=== PATIENT | female | born 1950 | race Caucasian/White ===

== ENCOUNTER 2024-12-14 20:04 | Inpatient (IN) | payer MEDICARE ==
[~2024-12-14] VITALS: Ht 160 cm; Wt 66.0 kg
--- NOTE | 2024-12-14 20:18 | Physician Documentation ---
History of Present Illness ~ Stated Complaint: MULTIPLE MEDICAL COMPLAINTS Time Seen by MD: 20:13 OK to notify your PCP?: Yes HPI Patient presents to the emergency room as a transfer from [facility] for concerns regarding failure to thrive, alcoholism, frequent falls, high-risk alcohol withdrawal. She is brought into their facility after a fall today of where she sustained a dislocated left shoulder. Shoulder was reduced. She was started on Eliquis a proximally a month ago but this was stopped secondary to frequent falls. EMS reports they had to go out to her living facility multiple times for lift assist. She lives alone. She is supposed to be on Eliquis sec to DVT. Medication Reconciliation Allergies: Coded Allergies: No Known Allergies (Unverified , 12/14/24) Review of Systems ROS All review of systems negative except as per HPI Physical Exam Physical Exam General: Patient is awake, alert, oriented x4 in no acute distress Head: Normocephalic with abrasion of 3 cm noted above right eyebrow Eyes: Conjunctival normal. EOMI. PERRL. ENT: Mucous membranes moist. Neck: Supple, trachea is midline. Chest: Clear to auscultation bilaterally without rales, rhonchi, or wheezes. There is no accessory muscle use or retractions. Cardiac: RRR without murmurs, gallops, or rubs. Abd: Soft, nondistended, nontender, with normoactive bowel sounds. No guarding, rebound, or rigidity. Extremities: Bilateral upper extremities neurovascularly intact. Right arm in his sling Progress Results/Orders Results/Orders Orders - CHET KESSLER MD Urinalysis, Cult If Indicated (12/14/24 20:21) Page Hospitalist (12/14/24 20:52) Fill Out Med Reconciliation (12/14/24 20:52) Completed Orders - CHET KESSLER MD Cbc/Diff (12/14/24 20:21) CMP (12/14/24 20:21) Normal Saline 1000ml (0.9% Sodium Chlori (12/14/24 20:25) Medications Received in ER Medications (Trade) Dose Ordered Sig/Sourav Route PRN Reason Start Time Stop Time Status Last Admin Dose Admin Sodium Chloride 1,000 ml @ 1,000 mls/hr ONCE ONCE IV 12/14/24 20:25 12/14/24 21:24 DC 12/14/24 21:05 1,000 MLS/HR Vital Signs 12/14/24 20:12 Temp 98.5 Pulse 98 Resp 15 B/P (MAP) 109/68 Pulse Ox 95 O2 Flow Rate 2.0 Laboratory Tests Test 12/14/24 20:40 White Blood Count 6.2 Red Blood Count 3.63 L Hemoglobin 10.7 L Hematocrit 32.2 L Mean Corpuscular Volume 88.8 Mean Corpuscular Hemoglobin 29.5 Mean Corpuscular Hemoglobin Concent 33.2 Red Cell Distribution Width 24.7 H Platelet Count 132 L Mean Platelet Volume 8.1 Neutrophils (%) (Auto) 55.2 Lymphocytes (%) (Auto) 36.3 Monocytes (%) (Auto) 7.2 Eosinophils (%) (Auto) 0.7 Basophils (%) (Auto) 0.6 Neutrophils # (Auto) 3.4 Lymphocytes # (Auto) 2.3 Monocytes # (Auto) 0.4 Eosinophils # (Auto) 0.0 Basophils # (Auto) 0.0 CBC Comment Platelet Estimate Decreased Red Blood Cell Morphology Perf Hypochromasia 1+ Basophilic Stippling Anisocytosis 2+ Microcytosis Few Macrocytosis Few Sodium Level 136 Potassium Level 3.1 L Chloride Level 106 Carbon Dioxide Level 20.3 L Anion Gap 10 Blood Urea Nitrogen 7 Creatinine 0.75 Estimated GFR/1.73 m2 76 BUN/Creatinine Ratio 9.3 L Glucose Level 116 H Calcium Level 7.4 L Total Bilirubin 0.6 Aspartate Amino Transf (AST/SGOT) 87 H Alanine Aminotransferase (ALT/SGPT) 57 Alkaline Phosphatase 95 Total Protein 5.4 L Albumin 2.0 L Globulin 3.4 Albumin/Globulin Ratio 0.6 L Chemistry Comments Medical Decision Making Findings Patient presents to the emergency room from [facility]. Patient was an unsafe discharge therefore she was transferred patient to our facility. Currently has no complaints. No symptoms of withdrawal Departure Admitted to Inpatient Unit: yes, to hospitalist Impression: Primary Impression: Multiple falls Additional Impressions: Alcohol abuse Dislocation of right shoulder joint Condition: Guarded Referrals: NO PRIMARY CARE PROVIDER (PCP) Signature Scribe Signature: No scribe Attestation: The note accurately reflects work and decisions made by me.Chet Kessler MD 12/14/24 21:40 CHET KESSLER MD Dec 14, 2024 20:18
[2024-12-14 20:52] LABS: MEAN PLATELET VOLUME 8.1 FL (7.4-10.4); RED CELL DISTRIBUTION WIDTH 24.7 % (11.5-14.5)
[2024-12-14 21:03] LABS: PLATELET ESTIMATE DECREASED
[2024-12-14] MEDS: normal saline 1000ml 1,000 ML IV ONE (21:05)
[2024-12-14 21:07] LABS: CREATININE 0.75 MG/DL (0.40-0.90); TOTAL CARBON DIOXIDE 20.3 MMOL/L (24-32); eCRCL 56 ML/MIN; eGFR 76 ML/MIN
[2024-12-14] MEDS ORDERED: potassium Cl 40MEQ/1/2NS 520ml 520 ML IV PRN (21:55)
[2024-12-14] MEDS ORDERED: mag hydrox/Alum hydrox/simeth 30ml oral suspension PO PRN (21:55)
[2024-12-14] MEDS ORDERED: HYDROcodone/acetaminophen 5mg/325mg tablet PO PRN (21:55)
[2024-12-14] MEDS ORDERED: haloperidol lactate 5mg/ml inj IM PRN (21:55)
[2024-12-14] MEDS ORDERED: ondansetron/PF 4mg/2ml inj IV PRN (21:55)
[2024-12-14] MEDS ORDERED: magnesium sulf-water 4G/100mL 100 ML IV PRN (21:55)
[2024-12-14] MEDS ORDERED: magnesium hydroxide 30ml (MOM) UD suspension PO PRN (21:55)
[2024-12-14] MEDS ORDERED: dextrose 50%-water 50ml dispensing syringe IV PRN (21:55)
[2024-12-14] MEDS ORDERED: potassium Cl 20 mEq SR tablet PO PRN (21:55)
[2024-12-14] MEDS ORDERED: magnesium sulf-water 2g/50mL 50 ML IV PRN (21:55)
[2024-12-14 22:33] LABS: INR 1.1 INR
[2024-12-14] MEDS: cefTAZidime 1 GM/NS 100ML IVPB 100 ML IV ONE (22:34)
--- NOTE | 2024-12-14 22:37 | RADIOLOGY REPORT ---
CLINICAL INDICATION: dislocation RIGHT TECHNIQUE: 3 views DI SHOULDER, COMPLETE (MIN 2 VWS) Comparison: None FINDINGS: No acute fracture or dislocation. Surgical anchor in the greater tuberosity. No significant degenera tive change. Unremarkable soft tissues and imaged chest contents. IMPRESSION: 1. No acute finding of the right shoulder.
[2024-12-14] MEDS: potassium Cl 20 mEq SR tablet PO PRN (22:48)
[2024-12-14] MEDS: folic acid 1mg/0.2ml inj IV SCH (22:57)
[2024-12-14] MEDS ORDERED: ASPI-1265 PO (23:00)
[2024-12-14] MEDS ORDERED: OMEP40CA21 PO (23:00)
[2024-12-14] MEDS ORDERED: ROPI2TAB29 PO (23:00)
[2024-12-14] MEDS ORDERED: TRAZ-251 PO (23:00)
[2024-12-14] MEDS: folic acid 1mg/0.2ml inj IV ONE (23:03)
--- NOTE | 2024-12-14 23:20 | HISTORY AND PHYSICAL-Residence ---
History & Physical Providers to CC Resident Creating Document: JOSEPHINE NAJERA, JANELLE ~ History of Present Illness Reason for Admit\Complaint: Mechanical fall History of Present Illness The patient is a 74 year old female with past medical history of alcohol use disorder, arthritis, depression, hypertension, GERD, HLD, recent history of right leg DVT (08/2024), was transfered from [facility]. Patient is a poor historian. History is limited. Patient is a chronic alcoholic and had her last drink this morning. She sustained a ground level mechanical fall at her house after she tripped through the door. She landed on her right shoulder which dislocated. She denied hit to head, loss of consciousness. She was brought in by the ambulance to [facility] where she underwent reduction of shoulder with pain medication. Patient denies fevers, difficulty breathing, cough, chest pain, palpitations, syncope, abdominal pain, nausea, vomiting, diarrhea, constipation, burning micturition. Patient has a recent history of right lower extremity DVT in Aug, 2024 for which she was started on Eliquis. The patient did not finish her course of Eliquis as she has recurrent falls. Allergies: Coded Allergies: No Known Allergies (Unverified , 12/14/24) Home Medications Home Medications Active Reported Prilosec (Omeprazole) 40 Mg Capsule 1 Cap PO DAILY 30 Days Aspirin 81 Mg Tab.chew 1 Tab PO DAILY 30 Days Ropinirole Hcl 2 Mg Tab.er.24h 1 Tab PO DAILY 30 Days Trazodone HCl 50 Mg Tablet 1 Tab PO HS 30 Days Past Medical History Past Medical History Alcohol use disorder Nicotine use disorder Arthritis Chronic back pain Depression/anxiety Essential hypertension GERD Hyperlipidemia Restless legs syndrome Recent history of right leg DVT in 09/12 Past Surgical History Surgical History Comment Elbow surgery Foot surgery Laparoscopic cholecystectomy Shoulder surgery Total abdominal hysterectomy with bilateral salpingo-oophorectomy Past Social History Social History Comment Patient lives by herself in her house. Ambulates independently without assistance. PCP - AMARA Christensen Does not follow up with other specialists Substance use history: Smokes about one pack of cigarettes per day and has been smoking since her 20s. Drinks about one pt of black Velvet whiskey per day. Last drink was at around 11:00 a.m. this morning. Denies other illicit drug abuse. ROS ROS Constitutional: No fever, dizziness, weakness. no change in appetite/weight HEENT: No blurring of the vision, No sore throat, epistaxis, tinnitus Cardiovascular: No chest pain/discomfort, palpitations, syncope. No pedal edema Respiratory: No sob, cough,, hemoptysis Gastrointestinal: No abdominal pain, nausea, vomiting. No diarrhea, constipation, melena. Genitourinary: No frquency, urgency, incontinence, nocturia. No dysuria, hematuria Musculoskeletal: Reports right shoulder pain Endocrine: No fatigue, polydipsia, polyuria. No heat or cold intolerance Neurologic: No headache, vertigo. No weakness, numbness or tingling of extremities Psychiatric: No hallucinations/delusions, no anhedonia, no suicidal ideation Hematologic: No bleeding or bruises Exam Vitals: Vital Signs Date Time Temp Pulse Resp B/P (MAP) Pulse Ox O2 Delivery O2 Flow Rate FiO2 12/14/24 22:42 23 12/14/24 22:42 98.5 89 97 12/14/24 20:12 2.0 General: Elderly female, alert and oriented, not in acute distress Head: Normocephalic with an atraumatic Eyes: Pupils- 3mm, reacting to light, conjunctiva- anicteric Nose and throat: No polyps, septum- normal, no mucosal ulcers Neck: Supple, no lymphadenopathy, no carotid bruit Respiratory: No use of accessory muscles of respiration, Bilateral normal vesicular breath sounds heard. No wheeze, rhochi or creps Cardiac: S1-S2 heard, rhythm regular, no gallop/murmur Abdomen: non distended, no tenderness, no organomegaly, bowel sounds - heard Extremities: no clubbing, no pedal edema, no deformities, peripheral pulses - 2+ Right shoulder: Patient refused examination Skin: warm and dry, no rash, no purpura Neuro: No focal deficit, gross cranial nerve exam - normal Diagnostic Data Last Recorded Lab Results: 12/14/24203912/14/242039 Diagnostic Data: Laboratory Tests Test 12/14/24 20:40 Prothrombin Time 11.0 SECONDS (9.0-12.0) INR International Normalized Ratio 1.1 INR Coagulation Comments Counseling Services Smoking & Tobacco Cessation: > 10 Minutes Advance Care Planning Advanced Care plannin - 30 Minutes (Full code) Additional Plan A 74-year-old female with past medical history of hypertension, recent DVT, arthritis, alcohol use disorder, nicotine use disorder, was transferred from [facility] after she sustained ground level mechanical fall dislocating her right shoulder. She is being admitted into the hospital for further evaluation and management. Plan: Ground level mechanical fall Anterior right shoulder dislocation S/p closed reduction with traction and external rotation X-ray of right shoulder at the other hospital showed anterior right shoulder dislocation with no obvious fracture. Patient underwent closed reduction with traction and external rotation of right shoulder. Repeat x-ray shows right shoulder in place with no fractures or dislocation. Pain management with morphine and [place]. Urinary tract infection covering Gram-negative organisms Lactic acidosis Urinalysis positive for leukocyte esterase, 5-10 WBCs and many bacteria. Elevated lactic acid 6.3, trended down to 3.8. No leukocytosis. Follow up with repeat lactic acid and procalcitonin. Started the patient on IV ceftriaxone 1 g daily. Patient received 1 L of NS bolus in the ER. Continue IV fluids NS at 100 mL/hour. Follow up with urine cultures. Hypokalemia Potassium at the other hospital was 2.8. Currently 3.1. Correct as per protocol. Recent history of right leg DVT Venous Doppler of bilateral lower extremities at the other hospital showed no sonographic evidence of DVT. Previous thrombus involving the right lower extremity has resolved. Continue Eliquis 5 mg twice daily. Alcohol use disorder Initiated the patient on severe alcohol withdrawal protocol. Continue IV thiamine 200 mg thrice daily and IV folic acid 1 mg daily. Ativan and Haldol for agitation and restlessness. Nicotine use disorder Substance use navigator and manager social work consulted. Restless leg syndrome Continue home ropinirole 0.25 mg HS. Code Status: Full code DVT Prophylaxis: Eliquis Analgesia/Sedation: Morphine Lines/Tubes: PIV Nutrition: Heart healthy diet PT: Ordered Prognosis: Guarded Disposition: We will admit the patient into [facility] Physical therapy and possible rehab placement. Continue alcohol withdrawal protocol. Josephine Najera MD Internal Medicine Resident PGY-2 I discussed the assessment and plan with the resident and agree with it with no changes. Randi Crespo MD Critical Care Date of Service: Dec 14, 2024 Billing Provider: JOHNNY HERRERA MD,JOSEPHINE RUSS, RES Dec 14, 2024 23:20 RANDI CRESPO MD Dec 15, 2024 20:30
[2024-12-14 23:40] VITALS: BP 153/90; PULSE 83; RESP 16; TEMP 98; O2SAT 94
[2024-12-15] MEDS: HYDROcodone/acetaminophen 10/325mg tab PO PRN (00:05)
[2024-12-15] MEDS: CefTRIAXone/D5W-Rocephin 1gm 50 ML IV ONE (00:52)
[2024-12-15] MEDS: normal saline 1000ml 1,000 ML IV SCH (00:52)
[2024-12-15 05:00] LABS: MEAN PLATELET VOLUME 8.3 FL (7.4-10.4); RED CELL DISTRIBUTION WIDTH 24.7 % (11.5-14.5)
[2024-12-15 05:30] LABS: CHOL/HDL RATIO 6.5 (0.00-4.99); CREATININE 0.67 MG/DL (0.40-0.90); LDL CHOLESTEROL 102 MG/DL (50-100); TOTAL CARBON DIOXIDE 21.5 MMOL/L (24-32); eCRCL 63 ML/MIN; eGFR 87 ML/MIN
[2024-12-15 06:52] VITALS: BP 121/76; PULSE 78; RESP 13; TEMP 98.6; O2SAT 94
[2024-12-15] MEDS: magnesium Cl slow-release 64mg tablet PO PRN (07:16)
[2024-12-15] MEDS: thiamine 100mg/ml 2ml inj. IV SCH (07:16)
[2024-12-15] MEDS: docusate sod 100mg capsule PO SCH (07:17)
[2024-12-15] MEDS: lactobacillus rhamnosus 10,000 MMU CELLS/CAPSULE PO SCH (07:17)
[2024-12-15] MEDS: K and/or MAG REPLACEMENT MC SCH (07:38)
[2024-12-15] MEDS ORDERED: heparin, porcine 5000 units/ml vial SQ SCH (08:00)
[2024-12-15 08:30] VITALS: RESP 13; O2SAT 94
[2024-12-15 10:00] VITALS: BP 123/69; PULSE 80; RESP 18; TEMP 96.6; O2SAT 96
--- NOTE | 2024-12-15 10:47 | PROGRESS NOTE- Residence ---
Progress Note - Resident Providers to CC Resident Creating Document: LIONEL TITUS RES ~ Antibiotic Timeout Antibiotic Ordered?: Yes Subjective Patient was seen and examined at the bedside today. Patient reports that she has chronic daily for months, has a about seven to episodes a day of loose watery stools. Denies any recent antibiotic use. Objective Vital Signs Date Time Temp Pulse Resp B/P (MAP) Pulse Ox O2 Delivery O2 Flow Rate FiO2 12/15/24 06:52 98.6 78 13 121/76 (91) 94 12/14/24 23:40 Room Air 12/14/24 20:12 2.0 Result Diagram: 12/15/24 0419 12/15/24 0419 Elderly female, alert and oriented, not in acute distress Head: Normocephalic with an atraumatic Eyes: Pupils- 3mm, reacting to light, conjunctiva- anicteric Nose and throat: No polyps, septum- normal, no mucosal ulcers Neck: Supple, no lymphadenopathy, no carotid bruit Respiratory: No use of accessory muscles of respiration, Bilateral normal vesicular breath sounds heard. No wheeze, rhochi or creps Cardiac: S1-S2 heard, rhythm regular, no gallop/murmur Abdomen: non distended, no tenderness, no organomegaly, bowel sounds - heard Extremities: no clubbing, no pedal edema, no deformities, peripheral pulses - 2+ Right shoulder: Patient refused examination Skin: warm and dry, no rash, no purpura Neuro: No focal deficit, gross cranial nerve exam - normal Coagulation Studies Laboratory Tests Test 12/14/24 20:40 Prothrombin Time 11.0 SECONDS (9.0-12.0) INR International Normalized Ratio 1.1 INR Coagulation Comments Plan Plan A 74-year-old female with past medical history of hypertension, recent DVT, arthritis, alcohol use disorder, nicotine use disorder, was transferred from [facility] after she sustained ground level mechanical fall dislocating her right shoulder. She is being admitted into the hospital for further evaluation and management. Plan: Ground level mechanical fall Anterior right shoulder dislocation S/p closed reduction with traction and external rotation X-ray of right shoulder at the other hospital showed anterior right shoulder dislocation with no obvious fracture. Patient underwent closed reduction with traction and external rotation of right shoulder. Repeat x-ray shows right shoulder in place with no fractures or dislocation. Pain management with morphine and [place]. Urinary tract infection covering Gram-negative organisms Lactic acidosis Urinalysis positive for leukocyte esterase, 5-10 WBCs and many bacteria. Elevated lactic acid 6.3, trended down. No leukocytosis normal procalcitonin Started the patient on IV ceftriaxone 1 g daily. Patient received 1 L of NS bolus in the ER. Continue IV fluids NS at 100 mL/hour. Follow up with urine cultures. Hypokalemia Hypomagnesemia Potassium at the other hospital was 2.8. Currently 3.1. Magnesium 1.2 Correct as per protocol. Recent history of right leg DVT Venous Doppler of bilateral lower extremities at the other hospital showed no sonographic evidence of DVT. Previous thrombus involving the right lower extremity has resolved. Continue Eliquis 5 mg twice daily. Alcohol use disorder Initiated the patient on severe alcohol withdrawal protocol. Continue IV thiamine 200 mg thrice daily and IV folic acid 1 mg daily. Ativan and Haldol for agitation and restlessness. Nicotine use disorder Substance use navigator and social worker assistant consulted. Restless leg syndrome Continue home ropinirole 0.25 mg HS. Chronic diarrhea Patient has a history of chronic diarrhea, has 7 to 8 episodes of loose bowel movements every day C diff ordered. Functional decline PT ordered Code Status: Full code DVT Prophylaxis: Eliquis Analgesia/Sedation: Morphine Lines/Tubes: PIV Nutrition: Heart healthy diet PT: Ordered Prognosis: Guarded Lionel Titus M.D PGY2 Date of Service: Dec 15, 2024 Billing Provider: JOHNNY HERRERA MD, PRAVAHIKA, RES Dec 15, 2024 10:47
[2024-12-15 13:21] LABS: C DIFF ANTIGEN NEGATIVE (NEGATIVE); C DIFF SPECIMEN=DIARRHEA? ACCEPTABLE; C DIFFICILE TOXINS A&B NEGATIVE (Neg)
[2024-12-15 15:56] LABS: LEUKOCYTE ESTERASE ,URINE NEGATIVE (Neg); NITRITES, URINE NEGATIVE (Neg); OCCULT BLOOD,URINE NEGATIVE (Neg)
[2024-12-15 15:58] LABS: UA COLLECTION TYPE NON-SPECIFIED
[2024-12-15 16:06] LABS: RENAL CELLS, URINE FEW /HPF; SQUAMOUS EPITHELIAL CELL,UR MODERATE /LPF (FEW)
[2024-12-15 16:34] LABS: URINE AMPHETAMINE SCREEN NEGATIVE (Neg); URINE BARBITUATE SCREEN NEGATIVE (Neg); URINE BENZODIAZEPINES SCREEN NEGATIVE (Neg); URINE CANNABINOID SCREEN NEGATIVE (Neg); URINE COCAINE SCREEN NEGATIVE (Neg); URINE METHADONE SCREEN NEGATIVE (Neg); URINE OPIATE SCREEN POSITIVE (Neg); URINE PHENCYCLIDINE SCREEN NEGATIVE (Neg)
[2024-12-15 18:00] VITALS: BP_SYST 123; BP_SYST 134; BP_DIAS 69; PULSE 80; PULSE 82; RESP 18; RESP 20; TEMP 96.6; TEMP 96.9; O2SAT 96
[2024-12-15 20:00] VITALS: RESP 19; O2SAT 95
[2024-12-15 22:46] VITALS: BP 149/83; PULSE 95; RESP 19; TEMP 98.7; O2SAT 95
[2024-12-16 05:07] LABS: MEAN PLATELET VOLUME 8.4 FL (7.4-10.4); RED CELL DISTRIBUTION WIDTH 24.0 % (11.5-14.5)
[2024-12-16 05:37] LABS: CREATININE 0.51 MG/DL (0.40-0.90); TOTAL CARBON DIOXIDE 21.8 MMOL/L (24-32); eCRCL 82 ML/MIN; eGFR > 90 ML/MIN
[2024-12-16 06:00] VITALS: BP 144/71; PULSE 88; RESP 18; TEMP 98.3; O2SAT 97
[2024-12-16] MEDS: CefTRIAXone/D5W-Rocephin 1gm 50 ML IV SCH (08:29)
[2024-12-16] MEDS: magnesium sulf-water 2g/50mL 50 ML IV ONE (08:30)
[2024-12-16] MEDS: loperamide 2mg capsule PO ONE (08:30)
[2024-12-16 10:00] VITALS: BP 145/85; PULSE 99; RESP 20; TEMP 97.2; O2SAT 95
--- NOTE | 2024-12-16 17:41 | PROGRESS NOTE- Residence ---
Progress Note - Resident Providers to CC Resident Creating Document: LIONEL TITUS RES ~ Antibiotic Timeout Antibiotic Ordered?: Yes Subjective Patient continues to have diarrhea. Physical therapy recommended discharge to rehab. Objective Vital Signs Date Time Temp Pulse Resp B/P (MAP) Pulse Ox O2 Delivery O2 Flow Rate FiO2 12/15/24 22:46 98.7 95 19 149/83 (105) 95 Room Air 12/14/24 20:12 2.0 Result Diagram: 12/16/2442312/16/24423 Elderly female, alert and oriented, not in acute distress Head: Normocephalic with an atraumatic Eyes: Pupils- 3mm, reacting to light, conjunctiva- anicteric Nose and throat: No polyps, septum- normal, no mucosal ulcers Neck: Supple, no lymphadenopathy, no carotid bruit Respiratory: No use of accessory muscles of respiration, Bilateral normal vesicular breath sounds heard. No wheeze, rhochi or creps Cardiac: S1-S2 heard, rhythm regular, no gallop/murmur Abdomen: non distended, no tenderness, no organomegaly, bowel sounds - heard Extremities: no clubbing, no pedal edema, no deformities, peripheral pulses - 2+ Right shoulder: Patient refused examination Skin: warm and dry, no rash, no purpura Neuro: No focal deficit, gross cranial nerve exam - normal Coagulation Studies Laboratory Tests Test 12/14/24 20:40 Prothrombin Time 11.0 SECONDS (9.0-12.0) INR International Normalized Ratio 1.1 INR Coagulation Comments Plan Plan A 74-year-old female with past medical history of hypertension, recent DVT, arthritis, alcohol use disorder, nicotine use disorder, was transferred from [facility] after she sustained ground level mechanical fall dislocating her right shoulder. She is being admitted into the hospital for further evaluation and management. Plan: Ground level mechanical fall Anterior right shoulder dislocation S/p closed reduction with traction and external rotation X-ray of right shoulder at the other hospital showed anterior right shoulder dislocation with no obvious fracture. Patient underwent closed reduction with traction and external rotation of right shoulder. Repeat x-ray shows right shoulder in place with no fractures or dislocation. Pain management with morphine and [place]. Physical therapy recommended discharge to post acute care. Urinary tract infection covering Gram-negative organisms Lactic acidosis Urinalysis positive for leukocyte esterase, 5-10 WBCs and many bacteria. Lactic acid trended down. No leukocytosis normal procalcitonin Started the patient on IV ceftriaxone 1 g daily day 2 Continue IV fluids NS at 100 mL/hour. Hypokalemia Hypomagnesemia Potassium at the other hospital was 2.8. Currently 3.1. Magnesium 1.1, 1 dose of IV magnesium ordered, on oral magnesium supplementation. Recent history of right leg DVT Venous Doppler of bilateral lower extremities at the other hospital showed no sonographic evidence of DVT. Previous thrombus involving the right lower extremity has resolved. Continue Eliquis 5 mg twice daily. Alcohol use disorder Initiated the patient on severe alcohol withdrawal protocol. Continue IV thiamine 200 mg thrice daily and IV folic acid 1 mg daily. Ativan and Haldol for agitation and restlessness. Nicotine use disorder Substance use navigator and social media developer consulted. Restless leg syndrome Continue home ropinirole 0.25 mg HS. Chronic diarrhea Patient has a history of chronic diarrhea, has 7 to 8 episodes of loose bowel movements every day C diff negative Functional decline PT recommended discharge to post acute care. Code Status: Full code DVT Prophylaxis: Eliquis Analgesia/Sedation: Morphine Lines/Tubes: PIV Nutrition: Heart healthy diet PT: Ordered Prognosis: Guarded Lionel Titus M.D PGY2 Date of Service: Dec 16, 2024 Billing Provider: JOHNNY HERRERA MD, PRAVAHIKA, RES Dec 16, 2024 17:41
[2024-12-16 18:00] VITALS: BP 113/73; PULSE 83; RESP 16; TEMP 97.9; O2SAT 95
[2024-12-16 20:00] VITALS: RESP 16; O2SAT 95
[2024-12-16 22:00] VITALS: BP 126/78; PULSE 81; RESP 24; TEMP 97.6; O2SAT 95
[2024-12-17 06:07] LABS: CREATININE 0.72 MG/DL (0.40-0.90); TOTAL CARBON DIOXIDE 25.4 MMOL/L (24-32); eCRCL 58 ML/MIN; eGFR 80 ML/MIN
[2024-12-17 06:50] VITALS: BP 160/91; PULSE 80; RESP 16; TEMP 98.4; O2SAT 98
[2024-12-17 07:32] LABS: MEAN PLATELET VOLUME 8.6 FL (7.4-10.4); RED CELL DISTRIBUTION WIDTH 25.2 % (11.5-14.5)
[2024-12-17 07:53] VITALS: BP 136/84; PULSE 77; RESP 16; O2SAT 94
[2024-12-17] MEDS: pantoprazole 40mg Tablet.DR PO SCH (07:53)
[2024-12-17 10:22] VITALS: BP 89/60; PULSE 83; RESP 16; TEMP 97.7; O2SAT 95
[2024-12-17 10:44] VITALS: BP 108/56; PULSE 79; O2SAT 99
--- NOTE | 2024-12-17 16:55 | DISCHARGE SUMMARY-Residence ---
Discharge Summary Providers to CC Resident Creating Document: DES DAY RES ~ Discharge Summary Admission Diagnosis: Mechanical fall Hospital Course DATE OF ADMISSION: 12/14/2024 DATE OF DISCHARGE: 12/17/2024 Hospital course same as mentioned discharge summary. Discharge Diagnosis\Comment: Ground level mechanical fall Anterior right shoulder dislocation S/p closed reduction with traction and external rotation Empiric antibiotics for possible UTI, UA cultures not indicated, ruled out UTI. Sepsis/SIRS ruled out Ruled out Lactic acidosis Hypokalemia Hypomagnesemia Recent history of right leg DVT Alcohol and nicotine use disorder Restless leg syndrome Chronic diarrhea C diff negative Functional decline Operations\Procedures: None Consultants: None Complications: None Condition on DC: Stable Discharge Summary: As per HPI: The patient is a 74 year old female with past medical history of alcohol use disorder, arthritis, depression, hypertension, GERD, HLD, recent history of right leg DVT (08/2024), was transfered from [facility]. Patient is a poor historian. History is limited. Patient is a chronic alcoholic and had her last drink this morning. She sustained a ground level mechanical fall at her house after she tripped through the door. She landed on her right shoulder which dislocated. She denied hit to head, loss of consciousness. She was brought in by the ambulance to [facility] where she underwent reduction of shoulder with pain medication. Patient denies fevers, difficulty breathing, cough, chest pain, palpitations, syncope, abdominal pain, nausea, vomiting, diarrhea, constipation, burning micturition. Patient has a recent history of right lower extremity DVT in Aug, 2024 for which she was started on Eliquis. The patient did not finish her course of Eliquis as she has recurrent falls. Hospital course: X-ray of the right shoulder at the other hospital showed anterior right shoulder dislocation with no obvious fracture. She underwent closed reduction with traction and external rotation of the shoulder. X-ray repeated here shows right shoulder in place with no fractures or dislocation. Pain management with morphine and Morris p.r.n.. UA was positive for infection started on IV ceftriaxone 1 g daily and adequately fluid resuscitated. She was hypokalemic and hypomagnesemia electrolytes were replaced per protocol. She has a recent history of DVT venous Doppler of the bilateral lower extremity at the other facility showed no evidence of DVT. Previous thrombus involving the right lower extremity has resolved. Continue Eliquis five b.i.d.. She has history of alcohol and nicotine use disorder was placed on the alcohol withdrawal protocol. She has a history of chronic diarrhea around 7-8 episodes of bowel movements a day C diff was negative. She improved significantly has worked with Physical therapy who recommended post-acute care. Her hospital course is uncomplicated she is hemodynamically stable on the day of discharge and her physical exam is as follows: Elderly female, alert and oriented, not in acute distress Head: Normocephalic with an atraumatic Eyes: Pupils- 3mm, reacting to light, conjunctiva- anicteric Nose and throat: No polyps, septum- normal, no mucosal ulcers Neck: Supple, no lymphadenopathy, no carotid bruit Respiratory: No use of accessory muscles of respiration, Bilateral normal vesicular breath sounds heard. No wheeze, rhochi or creps Cardiac: S1-S2 heard, rhythm regular, no gallop/murmur Abdomen: non distended, no tenderness, no organomegaly, bowel sounds - heard Extremities: no clubbing, no pedal edema, no deformities, peripheral pulses - 2+ Right shoulder: Patient refused examination Skin: warm and dry, no rash, no purpura Neuro: No focal deficit, gross cranial nerve exam - normal Patient is being discharged to rehab. Laboratory Tests Test 12/15/24 20:04 12/15/24 21:53 12/16/24 01:49 12/16/24 04:24 Glucometer 107 mg/dl 99 mg/dl Troponin I High Sensitivity 25 ng/L White Blood Count 5.0 X10'3 Red Blood Count 3.39 X10'6 Hemoglobin 10.1 g/dl Hematocrit 30.0 % Mean Corpuscular Volume 88.5 FL Mean Corpuscular Hemoglobin 29.8 PG Mean Corpuscular Hemoglobin Concent 33.6 g/dL Red Cell Distribution Width 24.0 % Platelet Count 120 X10'3 Mean Platelet Volume 8.4 FL Neutrophils (%) (Auto) 57.7 % Lymphocytes (%) (Auto) 31.8 % Monocytes (%) (Auto) 8.5 % Eosinophils (%) (Auto) 1.4 % Basophils (%) (Auto) 0.6 % Neutrophils # (Auto) 2.9 X10'3 Lymphocytes # (Auto) 1.6 X10'3 Monocytes # (Auto) 0.4 X10'3 Eosinophils # (Auto) 0.1 X10'3 Basophils # (Auto) 0.0 X10'3 CBC Comment Sodium Level 136 MMOL/L Potassium Level 3.7 MMOL/L Chloride Level 106 MMOL/L Carbon Dioxide Level 21.8 MMOL/L Anion Gap 8 Blood Urea Nitrogen 3 MG/DL Creatinine 0.51 MG/DL Estimated GFR/1.73 m2 > 90 ML/MIN BUN/Creatinine Ratio 5.9 Glucose Level 92 MG/DL Calcium Level 7.8 MG/DL Magnesium Level 1.1 MG/DL Total Bilirubin 0.6 MG/DL Aspartate Amino Transf (AST/SGOT) 74 U/L Alanine Aminotransferase (ALT/SGPT) 55 U/L Alkaline Phosphatase 77 IU/L Total Protein 5.6 G/DL Albumin 2.1 G/DL Globulin 3.5 G/DL Albumin/Globulin Ratio 0.6 Chemistry Comments Test 12/16/24 17:44 12/16/24 20:09 12/16/24 20:35 12/17/24 02:06 Glucometer 109 mg/dl 93 mg/dl 100 mg/dl Magnesium Level 1.8 MG/DL Test 12/17/24 04:34 12/17/24 04:42 12/17/24 07:50 CBC Comment White Blood Count 3.5 X10'3 Red Blood Count 3.77 X10'6 Hemoglobin 11.1 g/dl Hematocrit 34.6 % Mean Corpuscular Volume 91.8 FL Mean Corpuscular Hemoglobin 29.6 PG Mean Corpuscular Hemoglobin Concent 32.2 g/dL Red Cell Distribution Width 25.2 % Platelet Count 127 X10'3 Mean Platelet Volume 8.6 FL Neutrophils (%) (Auto) 49.1 % Lymphocytes (%) (Auto) 38.0 % Monocytes (%) (Auto) 8.3 % Eosinophils (%) (Auto) 3.1 % Basophils (%) (Auto) 1.5 % Neutrophils # (Auto) 1.7 X10'3 Lymphocytes # (Auto) 1.3 X10'3 Monocytes # (Auto) 0.3 X10'3 Eosinophils # (Auto) 0.1 X10'3 Basophils # (Auto) 0.1 X10'3 Sodium Level 140 MMOL/L Potassium Level 3.6 MMOL/L Chloride Level 107 MMOL/L Carbon Dioxide Level 25.4 MMOL/L Anion Gap 8 Blood Urea Nitrogen 2 MG/DL Creatinine 0.72 MG/DL Estimated GFR/1.73 m2 80 ML/MIN BUN/Creatinine Ratio 2.8 Glucose Level 85 MG/DL Calcium Level 7.7 MG/DL Magnesium Level 2.0 MG/DL Total Bilirubin 0.6 MG/DL Aspartate Amino Transf (AST/SGOT) 62 U/L Alanine Aminotransferase (ALT/SGPT) 49 U/L Alkaline Phosphatase 78 IU/L Total Protein 5.8 G/DL Albumin 2.1 G/DL Globulin 3.7 G/DL Albumin/Globulin Ratio 0.6 Chemistry Comments Glucometer 97 mg/dl Vital Signs Date Time Temp Pulse Resp B/P (MAP) Pulse Ox O2 Delivery O2 Flow Rate FiO2 12/17/24 10:44 79 108/56 (73) 99 12/17/24 10:22 97.7 16 Room Air 12/14/24 20:12 2.0 *Problems/Diagnosis: (1) Dislocation of right shoulder joint Status: Acute Total Time Spent on D/C: > 30 Minutes Date of Service: Dec 17, 2024 Billing Provider: JOHNNY HERRERA MD, ELIZABETH, JANELLE Dec 17, 2024 16:54
== END 2024-12-17 13:50 | DRG 563 ==
LOC: ER 20:06 → ED HOLD 21:34 → SUR 3N 23:20
PROVIDERS: ADMIT Internal Medicine Pulmonary Disease; ATTEND Family Medicine
DX: S43.004A Unspecified dislocation of right shoulder joint, initial encounter (principal); N39.0 Urinary tract infection, site not specified; E87.20 Acidosis, unspecified; F32.A Depression, unspecified; K21.9 Gastro-esophageal reflux disease without esophagitis; E87.6 Hypokalemia; E83.42 Hypomagnesemia; E78.5 Hyperlipidemia, unspecified; I10 Essential (primary) hypertension; F10.20 Alcohol dependence, uncomplicated; F41.9 Anxiety disorder, unspecified; G25.81 Restless legs syndrome; X58.XXXA Exposure to other specified factors, initial encounter; Y93.89 Activity, other specified; Y92.89 Other specified places as the place of occurrence of the external cause; Y99.8 Other external cause status; Z90.49 Acquired absence of other specified parts of digestive tract; Z90.710 Acquired absence of both cervix and uterus
CPT/HCPCS: 36415; 73030; 80053; 80061; 80305; 81001; 82948; 83036; 83605; 83690; 83735; 84145; 84443; 84484; 85008; 85025; 85610; 87081; 87324; 87449; 97116; 97161; 97530; 99285; A6250; G0378; J0696; J0713; J2060; J3411; J3490; J7030